=== PATIENT | male | born 1955 | race Caucasian/White ===

== ENCOUNTER 2022-06-17 05:41 | Day surgery (SDC) | payer MEDICARE ==
[2022-06-13 14:39] VITALS: BMI 27.3
[2022-06-17] MEDS ORDERED: Midazolam HCl 2 mg/2 ml Vial ONE (06:29)
[2022-06-17] MEDS ORDERED: PROPOFOL 40 ML ONE (06:32)
[2022-06-17] MEDS ORDERED: CEFAZOLIN 2 GM VIAL ONE (06:54)
[2022-06-17] MEDS ORDERED: Sodium Chloride 0.9% 100 ML ONE (06:54)
[2022-06-17] MEDS ORDERED: Collagenase Clostridium Hist. 0.9 MG VIAL IJ SCH (07:00)
[2022-06-17] MEDS ORDERED: PROPOFOL 200 MG/20 ML VIAL ONE (07:06)
[2022-06-17] MEDS ORDERED: Ketorolac Tromethamine 30 MG/ML VIAL ONE ×2 (07:06→07:51)
[2022-06-17] MEDS ORDERED: Lidocaine 1% MPF 2 ML VIAL ONE (07:06)
[2022-06-17] MEDS ORDERED: Bupivacaine PF 0.5% 30 ML VIAL ONE (07:28)
== END 2022-06-17 08:50 | disposition home or self-care (01) ==
LOC: SDC 05:41
PROVIDERS: ATTEND Orthopaedic Surgery Hand Surgery
PROC: 3E013TZ Introduction of Destructive Agent into Subcutaneous Tissue, Percutaneous Approach (ICD-10-PCS; principal; 2022-06-17)
DX: M72.0 Palmar fascial fibromatosis [Dupuytren] (principal); I10 Essential (primary) hypertension; G56.21 Lesion of ulnar nerve, right upper limb; Z79.899 Other long term (current) drug therapy
CPT/HCPCS: 20527 ×2; J0775; J0690; J1885; J2250; J2704; J3490; S0020